=== PATIENT | male | born 1945 | race Caucasian/White ===

== ENCOUNTER → 2023-01-18 13:00 | Outpatient (CLI) | payer MEDICARE, OTHER, SELFPAY | PROVIDERS: Family Provider Family Medicine Geriatric Medicine; PCP Family Medicine; Visit Provider Specialist | DX: N40.1 Benign prostatic hyperplasia with lower urinary tract symptoms (principal); N13.8 Other obstructive and reflux uropathy; R30.0 Dysuria; R33.8 Other retention of urine; R97.20 Elevated prostate specific antigen [PSA] | CPT/HCPCS: 81002; 87086; 99215 ==

== ENCOUNTER → 2024-01-02 10:01 | Outpatient (CLI) | payer MEDICARE, OTHER, SELFPAY | PROVIDERS: Family Provider Family Medicine Geriatric Medicine; PCP Family Medicine; Visit Provider Urology | DX: N40.1 Benign prostatic hyperplasia with lower urinary tract symptoms (principal); N13.8 Other obstructive and reflux uropathy; R97.20 Elevated prostate specific antigen [PSA] | CPT/HCPCS: 87086 ==

== ENCOUNTER → 2024-02-24 09:38 | Outpatient (CLI) | payer MEDICARE, OTHER, SELFPAY ==
[2024-02-24 10:10] LABS: Add Manual Diff / Slide Review NO; Basophils Absolute Auto 100 /uL (0-100); Basophils Percent Auto 1.1 % (0-2); Eosinophils Absolute Auto 200 /uL (0-450); Eosinophils Percent Auto 4.2 % (2-4); Hematocrit 46.1 % (41-53); Hemoglobin 15.3 g/dL (13.5-17.5); Lymphocytes Absolute Auto 1100 /uL (1100-4500); Lymphocytes Percent Auto 22.6 % (25-40); Mean Corpuscular HGB Conc 33.3 % (30-36); Mean Corpuscular Hemoglobin 34.2 PG (26-34); Mean Corpuscular Volume 102.6 fL (80-100); Monocytes Absolute Auto 400 /uL (0-900); Monocytes Percent Auto 8.2 % (3-14); Neutrophils Absolute Auto 3100 /uL (1500-7000); Neutrophils Percent Auto 63.9 % (50-75); Platelet Count 205 X10^3/uL (150-400); Red Blood Cell Count 4.49 X10^6/uL (4.5-5.9); White Blood Cell Count 4.8 X10^3/uL (4.5-11.0)
[2024-02-24 10:24] LABS: Alanine Aminotransferase 32 IU/L (<50); Albumin 4.1 g/dL (3.5-5.0); Albumin Globulin Ratio 1.6 (1.0-2.8); Alkaline Phosphatase 79 U/L (38-126); Aspartate Aminotransferase 37 IU/L (17-59); BUN Creatinine Ratio 25.7 (6-22); Bilirubin Total 0.7 mg/dL (0.2-1.3); Blood Urea Nitrogen 19 mg/dL (9-20); Calcium 9.5 mg/dL (8.4-10.2); Carbon Dioxide 26 mmol/L (22-32); Chloride 106 mmol/L (98-107); Cholesterol 160 mg/dL (140-199); Estimated Glomerular Filt Rate > 60 mL/min (>60); Globulin 2.6 g/dL (1.7-4.1); Glucose 106 mg/dL (80-110); HDL Cholesterol 65 mg/dL (40-60); HEMOLYSIS < 15 (0-50); LDL Cholesterol Calculated 85 mg/dL (<100); Potassium 4.4 mmol/L (3.4-5.1); Sodium 138 mmol/L (137-145); Total Protein 6.7 g/dL (6.3-8.2); Triglycerides 51 mg/dL (35-150)
[2024-02-24 10:53] LABS: Prostate Specific Antigen 4.43 ng/mL (0.10-4.00)
== END ==
LOC: LAB 09:40
PROVIDERS: Family Provider Family Medicine Geriatric Medicine; PCP Family Medicine; Referring Provider Family Medicine; Visit Provider Family Medicine
DX: E78.5 Hyperlipidemia, unspecified (principal); R97.20 Elevated prostate specific antigen [PSA]; N40.1 Benign prostatic hyperplasia with lower urinary tract symptoms
CPT/HCPCS: 36415; 80053; 80061; 84153; 85025

== ENCOUNTER → 2024-12-03 10:38 | Outpatient (CLI) | payer MEDICARE, OTHER, SELFPAY ==
[2024-12-03 13:16] LABS: Prostate Specific Antigen 6.22 ng/mL (0.10-4.00)
== END ==
PROVIDERS: Family Provider Family Medicine Geriatric Medicine; PCP Family Medicine; Referring Provider Urology; Visit Provider Urology
DX: R97.20 Elevated prostate specific antigen [PSA] (principal)
CPT/HCPCS: 36415; 84153

== ENCOUNTER 2024-12-03 14:48 | Observation (INO) | payer MEDICARE, OTHER, SELFPAY ==
[2024-12-03 14:56] VITALS: BP 133/90; PULSE 115; RESP 20; TEMP 36.3; O2SAT 96; BMI 27.1
--- NOTE | 2024-12-03 15:03 | EKG_ITS ---
[place] [id number] [place] [address] Test Date: 2024-12-03 Pat Name: Kristofer Valadez Department: [facility] Room: Gender: Male Sharemilker: JESSICA : 1945 Requested By: Order Number: [id number] [place] MD: Alexandre Tyson MD Measurements Intervals [place] Rate: 117 P: 3 W[place]: 176 QRS: 30 QRSD: 98 T: 32 QT: 312 QTc: 435 Interpretive Statements Sinus tachycardia Possible Inferior infarct , age undetermined Electronically Signed On 12-03-2024 16:10:30 PDT by Alexandre Tyson MD
--- NOTE | 2024-12-03 15:15 | ED.GIBLEED ---
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 Has known hemorrhoids in the past. Has not had any colonoscopy recently but negative Cologuard apparently in the past. Patient denies headache, dizziness, lightheadedness, chest pain, back pain, nausea, vomiting, shortness of breath. Other than what is stated 14 point review of system is negative. Related Data Home Medications ?Medication ?Instructions ?Recorded ?Confirmed apixaban 5 mg tablet (Eliquis) 5 mg PO BID 01/18/23 01/02/24 Allergies Allergy/AdvReac Type Severity Reaction Status Date / Time No Known Drug Allergies Allergy Unverified 01/02/24 10:05 Review of Systems Review of Systems ROS Unobtainable: All systems reviewed & are unremarkable except as noted in HPI and below Patient History Medical History History of elevated PSA Nocturia History of urinary retention BPH w urinary obs/LUTS Diverticular disease Surgical History History of bilateral knee replacement History of colon surgery History of cholecystectomy Family History Brother Cancer of neck Mother Breast cancer Social History Smoking Status: Never smoker Smoking Status: Never smoker Exam Narrative Exam Narrative: GENERAL: [79] year old patient appears stated age. Well-developed patient, in mild distress. HEAD: Atraumatic. Normocephalic. EYES: Pupils equal round and reactive. Extraocular motions intact. No scleral icterus. No injection or drainage. CARDIOVASCULAR: Regular rate and rhythm without murmurs, gallops, or rubs. RESPIRATORY: Clear to auscultation. Breath sounds equal bilaterally. No wheezes, rales, or rhonchi. GASTROINTESTINAL: Abdomen soft, non-tender, nondistended. Rectal: Hemoccult guaiac positive external hemorrhoid EXTREMITIES: No edema or joint tenderness. BACK: Nontender without deformity or crepitance. No flank tenderness. NEURO: AOx3. SKIN: No rash or erythema of visible areas Initial Vital Signs Initial Vital Signs: Vital Signs Temperature 97.3 F L 12/03/24 14:56 Pulse Rate 115 H 12/03/24 14:56 Respiratory Rate 20 12/03/24 14:56 Blood Pressure 133/90 12/03/24 14:56 Pulse Oximetry 96 12/03/24 14:56 Oxygen Delivery Method Room Air 12/03/24 14:56 Course Orders Ordered: ED Orders 12/03/24 15:03 EKG-12 Lead Stat 12/03/24 15:14 CT abdomen pelvis w con Stat 12/03/24 15:29 Complete Blood Count AUTO DIFF Stat Comprehensive Metabolic Panel Stat PTT Partial Thromboplastin Joey Stat Prothrombin Time INR Stat Type and Screen Stat 12/03/24 15:42 Urine Microscopic Stat Ondansetron HCl (Ondansetron 4 Mg/2 Ml Inj) 4 mg IV NOW PRN PRN Reason: Nausea And Vomiting Ondansetron HCl (Ondansetron 4 Mg Odt) 4 mg PO NOW PRN PRN Reason: Nausea And Vomiting Discontinued Medications Lactated Ringer's (Lactated Ringers) 500 mls @ 1,000 mls/hr IV BOLUS ONE Stop: 12/03/24 15:43 Last Admin: 12/03/24 18:01 Dose: 1,000 mls/hr Documented By: ES Vital Signs Vital signs: Vital Signs - 8 hr 12/03/24 14:56 Temperature 97.3 F L Pulse Rate 115 H Respiratory Rate 20 Blood Pressure 133/90 Pulse Oximetry 96 Oxygen Delivery Method Room Air MDM - GI Bleed Lab Data 12/03/24 15:29 12/03/24 15:29 Labs: Lab Results 12/03/24 Range/Units 15:29 WBC 7.3 (4.5-11.0) X10^3/uL RBC 4.15 L (4.5-5.9) X10^6/uL Hgb 14.2 (13.5-17.5) g/dL Hct 41.6 (41-53) % MCV 100.1 H (80-100) fL MCH 34.1 H (26-34) PG MCHC 34.1 (30-36) % RDW 13.6 (11.6-14.8) % Plt Count 236 (150-400) X10^3/uL Neut % (Auto) 77.9 H (50-75) % Lymph % (Auto) 15.1 L (25-40) % [place] % (Auto) 5.5 (3-14) % Eos % (Auto) 0.4 L (2-4) % Baso % (Auto) 1.1 (0-2) % Neut # (Auto) 5700 (4593-1983) /uL Lymph # (Auto) 1100 (7519-8100) /uL [place] # (Auto) 400 (0-900) /uL Eos # (Auto) 0 (0-450) /uL Baso # (Auto) 100 (0-100) /uL PT 13.1 H (9.4-12.5) SECONDS INR 1.2 (0.9-1.3) APTT 32 (25.1-36.5) SECONDS Sodium 135 L (137-145) mmol/L Potassium 4.0 (3.4-5.1) mmol/L Chloride 106 (98-107) mmol/L Carbon Dioxide 20 L (22-32) mmol/L BUN 15 (9-20) mg/dL Creatinine 0.64 L (0.66-1.25) mg/dL Estimated GFR > 60 (>60) mL/min BUN/Creatinine Ratio 23.4 H (6-22) Glucose 118 H (70-99) mg/dL Calcium 8.8 (8.4-10.2) mg/dL Total Bilirubin 1.1 (0.2-1.3) mg/dL AST 37 (17-59) IU/L ALT 25 (<50) IU/L Alkaline Phosphatase 88 (38-126) U/L Total Protein 7.0 (6.3-8.2) g/dL Albumin 4.1 (3.5-5.0) g/dL Globulin 2.9 (1.7-4.1) g/dL Albumin/Globulin Ratio 1.4 (1.0-2.8) Blood Type O Positive Antibody Screen Negative Urine Dip Bedside Urine Glucose Negative Bedside Urine Bilirubin - Negative Bedside Urine Ketone +/- 5 Urine Specific [place] 1.025 Bedside Urine Occult Blood - Negative Bedside Urine pH 6.0 Bedside Urine Protein - Negative Bedside Urine Urobilinogen - Negative Bedside Urine Nitrite - Negative Bedside Urine Leukocytes + [address] scan - abdomen/pelvis: Radiologist's Impression: [address] [address] [address] Scan Report Signed Patient: Kristofer Valadez MR#: [id number] : 1945 Acct:[id number] Age/Sex: 79 / M Date of Service: 12/03/24 Loc: ED Accession Number: [id number] Procedure: CT abdomen pelvis w con Ordering Provider: Alexandre Swartz D.O. PROCEDURE: CT ABDOMEN PELVIS W CON INDICATIONS: GI BLEED TECHNIQUE: After the administration of intravenous contrast, axial sections acquired from the lung bases to the pubic symphysis. Coronal and sagittal reformats were performed. For radiation dose reduction, the following was used: automated exposure control, adjustment of mA and/or kV according to patient size. COMPARISON: None. FINDINGS: Image quality: Diagnostic. Lower Chest: No significant findings. ABDOMEN / PELVIS: Moderate nonspecific wall thickening of the gastroesophageal junction into the stomach, some more than expected for artifact from partial nondistention. Gastritis or other process which rarely may include lymphoma or neoplasm could be considered. Continued follow-up is needed. Duodenum within normal limits. Nonspecific mild wall thickening of the jejunum likely artifact from partial nondistention. Some nonspecific soft tissue prominence in the midline low abdomen some of which related to suspected prior bowel anastomosis although anterior abdominal hernia repair, scarring or other cause could give this appearance (axial series 2, images 74-86). No abnormally dilated bowel to suggest obstruction. Normal nondilated appendix. For a few scattered diverticula in the descending and sigmoid colon. Nonspecific wall thickening of the mid and distal rectum, anus more than expected for artifact from nondistention and proctitis, hemorrhoids or other anal rectal lesion should be considered. Moderately enlarged prostate gland and seminal vesicles with lobulated bulging of the superior prostate into the inferior base of the urinary bladder. Findings commonly related to prosthetic hypertrophy however prosthetic neoplasm not excluded. Mild wall thickening of the urinary bladder measures up to 9 mm thickness some of which related to artifact from partial nondistention although cystitis, chronic urinary retention, infiltrative bladder wall process or other cause should be considered. Surgical clips status post cholecystectomy. 5 mm right adrenal nodule. Left adrenal normal. Mild calcifications of the aorta. 6 cm right renal inferior pole cyst. No hydronephrosis, no renal, ureteral or bladder calculi. Bilateral inguinal hernias containing fat. Moderate to severe degenerative changes of the lower thoracic, lumbar spine with suspected central stenoses at multiple levels from L2-3 through L4-5. Moderate S-shaped scoliosis, moderate degenerative changes of the hips. Liver: Several small low-attenuation foci commonly cyst too small to characterize less than 1 cm. 1.8 cm cyst left lobe of the liver. Biliary ducts: No biliary dilation. Pancreas: Normal Spleen: Normal Peritoneum: No abnormal intraperitoneal fluid. No free air. IMPRESSION: Abnormal appearance of the stomach and distal rectum/anus as discussed above. Follow-up is needed. Other findings as above. ECG Data Interpretation: Sinus tach HR 117 ND 176 QRS [address]-t wave change No preivous EKG to compare MDM Narrative Medical decision making narrative: All lab work, vital signs, nurse triage note, medication list, previous ER visits, and all imaging studies reviewed. Patient given fluids Protonix type and screen GoLYTELY per Dr. Torres. WBC 7.3 hemoglobin 14.2 platelet 236 INR 1.2 sodium 135 potassium 4.0 chloride 106 CO2 20 BUN 15 creatinine 0.64 glucose 118. Case discussed with Dr. Torres bridging orders, GoLYTELY, and to admit to his service. Differential diagnosis per upper versus lower GI bleed, Eliquis related GI bleed. Discharge Plan Departure Patient Disposition: Admitted as Observation Clinical Impression: GI (gastrointestinal bleed) Qualifiers: GI bleed type/associated pathology: anorectal hemorrhage Qualified Code(s): K62.5 - Hemorrhage of anus and rectum Admit Date/Time: 12/03/24 18:18 Admit Provider: Nitesh Torres
[2024-12-03 15:43] LABS: Add Manual Diff / Slide Review NO; Hematocrit 41.6 % (41-53); Hemoglobin 14.2 g/dL (13.5-17.5); Lymphocytes Absolute Auto 1100 /uL (1100-4500); Mean Corpuscular HGB Conc 34.1 % (30-36); Mean Corpuscular Hemoglobin 34.1 PG (26-34); Mean Corpuscular Volume 100.1 fL (80-100); Platelet Count 236 X10^3/uL (150-400)
[2024-12-03 15:55] LABS: INR 1.2 (0.9-1.3); Prothrombin Time 13.1 SECONDS (9.4-12.5)
[2024-12-03 15:57] LABS: PTT Partial Thromboplastin Tim 32 SECONDS (25.1-36.5)
[2024-12-03 16:03] LABS: Alanine Aminotransferase 25 IU/L (<50); Albumin 4.1 g/dL (3.5-5.0); Albumin Globulin Ratio 1.4 (1.0-2.8); Alkaline Phosphatase 88 U/L (38-126); Blood Urea Nitrogen 15 mg/dL (9-20); Calcium 8.8 mg/dL (8.4-10.2); Carbon Dioxide 20 mmol/L (22-32); Chloride 106 mmol/L (98-107); Estimated Glomerular Filt Rate > 60 mL/min (>60); Globulin 2.9 g/dL (1.7-4.1); Glucose 118 mg/dL (70-99); HEMOLYSIS < 15 (0-50); Potassium 4.0 mmol/L (3.4-5.1); Sodium 135 mmol/L (137-145); Total Protein 7.0 g/dL (6.3-8.2)
[2024-12-03] MEDS: LACTATED RINGERS 500 ML 1000 ML IV (18:01)
[2024-12-03] MEDS: PANTOPRAZOLE 40 MG VIAL IV (18:22)
[2024-12-03] MEDS: PEG3350/SOD SULF,BICARB,CL/KCL 4,000 ML SOLUTION 4000 ML PO (18:36)
[2024-12-03 19:00] VITALS: PULSE 104; RESP 19; O2SAT 97
[2024-12-03 19:01] VITALS: BP 157/75; PULSE 101; RESP 14; O2SAT 97
[2024-12-03 19:18] LABS: Culture Indicated Urine Specimen Cultured
[2024-12-03 19:30] VITALS: BP 142/85; PULSE 104; RESP 39; O2SAT 98
--- NOTE | 2024-12-03 19:38 | PM.HP.IH.1 ---
History of Present Illness History of Present Illness Date Patient Seen: 12/03/24 Time Patient Seen: 19:38 Chief complaint: passing blood Narrative: 79yo M admitting through ED for BRBPR. Guiac positive stool in ED. 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 He took eliquis this morning. He noticed BRBPR that filled the toilet last night. He has a history of bleeding hemorrhoids but this was much more blood than he has seen. Hgb in ED 14. CT demonstrated thickening of the distal esophagus (r/o lymphoma) and thickening of distal rectum. He's had multiple colonoscopies in the past so has been on Cologuard screening which was negative recently. No history of polyps on colonoscopy. H/O perforated diverticulitis, Shanda's, reversal 3 months later. [facility] Medical History History of elevated PSA Nocturia History of urinary retention BPH w urinary obs/LUTS Diverticular disease Surgical History History of bilateral knee replacement History of colon surgery History of cholecystectomy Family History Brother Cancer of neck Mother Breast cancer Social History Smoking Status: Never smoker Meds Home Medications and Allergies Home Medications ?Medication ?Instructions ?Recorded ?Confirmed ?Type apixaban 5 mg tablet (Eliquis) 5 mg PO BID 01/18/23 01/02/24 History Allergies Allergy/AdvReac Type Severity Reaction Status Date / Time No Known Drug Allergies Allergy Unverified 01/02/24 10:05 Exam Vital Signs (past 8 hours): - 12/03/24 14:56 Temperature 97.3 F L Pulse Rate 115 H Respiratory Rate 20 Blood Pressure 133/90 Pulse Oximetry 96 Oxygen Delivery Method Room Air Oxygen Delivery Method Room Air Narrative Exam Narrative: Const General: healthy appearing, comfortable and no acute distress Orientation: alert and oriented x3 HENMT Ears: hearing grossly normal bilaterally Eyes Visual Menjivar: normal visual menjivar by confrontation Conjunctivae: conjunctivae normal Sclera: sclerae normal EOM: EOM intact bilaterally Resp Effort & Inspection: normal respiratory effort and able to speak in complete sentences Cardio Rate: regular rate GI Palpation: soft (NT) Extrem General: no pedal edema and no calf tenderness Objective Labs 12/03/24 15:29 12/03/24 15:29 Labs: Laboratory Results - last 24 hr 12/03/24 12/03/24 15:05 15:29 WBC 7.3 RBC 4.15 L Hgb 14.2 Hct 41.6 MCV 100.1 H MCH 34.1 H MCHC 34.1 RDW 13.6 Plt Count 236 Neut % (Auto) 77.9 H Lymph % (Auto) 15.1 L [place] % (Auto) 5.5 Eos % (Auto) 0.4 L Baso % (Auto) 1.1 Neut # (Auto) 5700 Lymph # (Auto) 1100 [place] # (Auto) 400 Eos # (Auto) 0 Baso # (Auto) 100 PT 13.1 H INR 1.2 APTT 32 Sodium 135 L Potassium 4.0 Chloride 106 Carbon Dioxide 20 L BUN 15 Creatinine 0.64 L Estimated GFR > 60 BUN/Creatinine Ratio 23.4 H Glucose 118 H Calcium 8.8 Total Bilirubin 1.1 AST 37 ALT 25 Alkaline Phosphatase 88 Total Protein 7.0 Albumin 4.1 Globulin 2.9 Albumin/Globulin Ratio 1.4 Urine RBC None seen Urine WBC 1-5/hpf Ur Squamous Epith Cells 0-1 /hpf Urine Bacteria Few (2-10) H Ur Culture Indicated? Specimen cultured Vol Urine Centrifuged 10ml (spun) Blood Type O Positive Antibody Screen Negative Assessment & Plan Assessment and plan (1) GI (gastrointestinal bleed): Qualifiers: GI bleed type/associated pathology: anorectal hemorrhage Qualified Code(s): K62.5 - Hemorrhage of anus and rectum Status: Acute Plan Plan EGD/Colonoscopy, possible biopsy tomorrow. Reverse Eliquis with Joshua romero. The risks, benefits and options regarding the procedure were explained to the patient in detail. Risk discussion included but not limited to: bleeding, perforation, unable to reach cecum, missed lesion. The patient was encouraged to ask questions and they were answered to their satisfaction. The patient understands and is agreeable to proceed. Time-Based Coding :: [TOTAL MINUTES] spent with patient and on the chart (including review of chart, obtaining history, exam, reviewing outside data, placing orders, documenting exam and treatment plan, and counseling patient) on [DATE]. [employer] Document charge(s): Yes Charge Codes Initial inpatient/observation care: [address]10
[2024-12-03 19:50] VITALS: BP 137/77; PULSE 108; RESP 18; O2SAT 97
--- NOTE | 2024-12-03 19:51 | PC.NURSE ---
Pt ambulatory to restroom without difficulty or assistance. Pt states there is still notable blood in toilet from rectum.
[2024-12-03 21:17] VITALS: BP 94/72; PULSE 106; RESP 16; TEMP 36.1
[2024-12-03 21:46] VITALS: BMI 27.1
[2024-12-03] MEDS: PROTHROMBIN CPLX(PCC)4FACT 1,000 UNIT/40 ML VIAL 2000 UNIT IV (22:58)
--- NOTE | 2024-12-04 | PATH_ITS ---
[facility] Accession Number: [id number] No. of containers..02 Tissue . 01 Material submitted: . PART A: stomach - STOMACH, ANTRAL PART B: stomach - FUNDIC POLYP . 01 Clinical history: . A) R/O H.PYLORI . 01 Diagnosis: Part A: STOMACH, ANTRAL: Gastric mucosa with mild chronic inflammation. No Helicobacter organisms identified. No intestinal metaplasia, dysplasia, or malignancy identified. . Part B: FUNDIC POLYP: Gastric xanthoma. No Helicobacter organisms identified on H/E stain. No intestinal metaplasia, dysplasia, or malignancy identified. [facility] 12/18/20241422 Local . 01 Electronically signed: . George Jamison MD, Pathologist NPI- [id number] . 01 Gross description: . A. Received in formalin with two identifiers and antral biopsy are two rojo soft tissue fragments ranging from 0.3 to 0.4 cm in greatest dimension, entirely submitted in A1. . B. Received in formalin with two identifiers and fundic polyp are two rojo soft tissue fragments measuring 0.3 cm in greatest dimension each, submitted entirely in B1. (AER:[id number]) /MRV 12/18/2024 1423 Local . 01 Microscopic: . Part A: ANTRAL: An immunohistochemical stain was performed to evaluate for Helicobacter organisms and is negative. The control stains appropriately. * This test was developed and the performance characteristics were validated by [facility]. It has not been cleared or approved by the Food and Drug Administration. . 01 Pathologist provided ICD-10: K29.50, K31.7 . 01 CPT . 833661, 304404, L75094 Specimen Comment: A courtesy copy of this report has been sent to Pathology Performed at: [address] [facility] [address], [place], [place] [id number] MD George Jamison MD Phone: [phone]
[2024-12-04 08:53] VITALS: BP 113/76; PULSE 119; RESP 14; TEMP 36.6; O2SAT 98
[2024-12-04] MEDS: LACTATED RINGERS 1,000 ML 42 ML IV (15:20)
--- NOTE | 2024-12-04 15:42 | P.OP.EGD&C_ITS ---
Operative Date/Time/Diagnoses Date of procedure: 12/04/24 Time of procedure: 16:13 Pre-op diagnosis: BRBPR Post-op diagnosis: other (Large internal hemorrhoids, likely source of bleeding, no active bleeding, fundic polyp, mild antritis) Procedure & Clinicians Study performed: EGD with biopsy, polypectomy, Colonoscopy Same procedure(s) as scheduled: Yes Indications: 79yo M, presented to ED with BRBPR, Eliquis (DVT after knee replacement) reversed. CT with thickening of distal esophagus and rectum. Surgeon: Nitesh Torres Anesthesia Type: MAC +/- Procedure Notes SCOAP/Timeout: Performed Procedure in detail: EGD Informed consent was obtained. The procedure, its risks, benefits, and alternatives were discussed. Patient understood and agreed to proceed. The patient was placed in the left lateral decubitus position with head elevated. Sedation given per anesthesia. The video endoscope was inserted into the oropharynx and guided under direct vision into the esophagus, stomach, and duodenum which were carefully examined. The scope was retroflexed to examine the hiatus and gastroesophageal junction. Antral biopsies were obtained for Helicobacter pylori. The patient tolerated the procedure very well. There were no apparent complications. Significant EGD findings: Z-line noted at: 37cm Normal esophagus including distal esophagus; no esophagitis, mass, ulcer or stricture Mild antritis, biopsies taken to r/o H pylori Fundic polyp, sessile, 3mm, benign appearing, removed with cold biopsy forceps Gastric body without ulcer or bleeding No source of bleeding on EGD Colonoscopy Patient placed in left lateral recumbent position. Time out was performed. Pr ocedural sedation was administered by anesthesia. Examination began with a thorough inspection of the perianal area. There was no evidence of fissures, fistulae, external hemorrhoids or cutaneous malignancy. The colonoscope was then placed into the rectum and the lumen was insufflated with carbon dioxide. The scope was carefully advanced forward. Ultimately the cecum was intubated and confirmed by identification of the ileocecal valve, the appendiceal orifice and the confluence of the taenia. The scope was then slowly withdrawn examining the colon thoroughly in all directions. In the rectum, retroflexion of the scope was performed for inspection of the distal rectum and anal canal. ?Significant colonoscopy findings: ?1. Quality of the preparation-good, [place] 2-3, improved with irrigation/suction, small lesions could be missed ?2. Colon anastomosis seen in sigmoid region, bifurcated anastomosis with blind end 3. Diverticulae scattered throughout colon 4. Large internal hemorrhoids, likely source of bleeding, no active bleeding, would be good candidates for banding 5. No polyps, masses, strictures Scope withdrawal time: 6 Findings: diverticulosis and gastritis Specimen(s): other (gastric polyp, antritis) Complications: none Impression: Internal hemorrhoids, large, likely source of rectal bleeding Fundic polyp, mild gastritis No abnormality in distal esophagus in area of CT thickening Distal rectum with large internal hemorrhoids, otherwise normal on endoscopic appearance Post-procedure Recommendations: Colonscopy in 10 years and Will call with biopsy results Plan for aftercare: PACU then fonseca then home today Follow up: as needed Disposition: PACU
[2024-12-04 16:13] VITALS: BP 132/63; PULSE 87; RESP 16; TEMP 36.1; O2SAT 98
--- NOTE | 2024-12-04 16:30 | PM.DS.IH.1 ---
History of Present Illness History of Present Illness Date Patient Seen: 12/04/24 Time Patient Seen: 16:30 Chief complaint: passing blood Narrative: 79yo M admitting through ED for BRBPR. Guiac positive stool in ED. 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 He took eliquis this morning. He noticed BRBPR that filled the toilet last night. He has a history of bleeding hemorrhoids but this was much more blood than he has seen. Hgb in ED 14. CT demonstrated thickening of the distal esophagus (r/o lymphoma) and thickening of distal rectum. He's had multiple colonoscopies in the past so has been on Cologuard screening which was negative recently. No history of polyps on colonoscopy. H/O perforated diverticulitis, Shanda's, reversal 3 months later. Discharge Providers Provider Date of admission: 12/03/24 18:18 Discharge Date: 12/04/24 Primary care physician: Nuno Wallace MD Consults: 12/03/24 18:16 Consult to General Surgery Urgent Comment: Consulting Provider: Nitesh Torres Reason for consultation: GI bleed Has provider been notified: Yes Discharge provider: Nietsh Torres MD Summary Hospital Course Discharge Diagnosis: LGI bleeding due to internal hemorrhoids/Eliquis Hospital Course: Patient admitted through ED last night with BRBPR. Eliquis reversed with Kcentra and GI endoscopy (EGD/Colon) done today. Dominant finding large internal hemorrhoids. No active bleeding. Patient discharged home. Hold Eliquis until Monday. Discuss ongoing anticoagulation with PCP given significant bleeding event. F/U in office to discuss internal hemorrhoid banding. Status at Discharge Cognitive/behavioral status at discharge: oriented Functional status at discharge: independent ambulation Overall status at discharge: patient is back to baseline Time Spent with Patient Time spent: Greater than 30 minutes Exam Vital Signs (past 8 hours): - 12/04/24 08:53 12/04/24 16:13 Temperature 97.8 F 97.0 F L Pulse Rate 119 H 87 Respiratory Rate 14 16 Blood Pressure 113/76 132/63 Pulse Oximetry 98 98 Oxygen Delivery Method Room Air Oxygen Delivery Method Room Air Narrative Exam Narrative: Const General: healthy appearing, comfortable and no acute distress Orientation: alert and oriented x3 HENMT Ears: hearing grossly normal bilaterally Eyes Visual Menjivar: normal visual menjivar by confrontation Conjunctivae: conjunctivae normal Sclera: sclerae normal EOM: EOM intact bilaterally Resp Effort & Inspection: normal respiratory effort and able to speak in complete sentences Cardio Rate: regular rate GI Palpation: soft (NT) Extrem General: no pedal edema and no calf tenderness Objective Labs 12/03/24 15:29 12/03/24 15:29 Labs: Laboratory Results - last 24 hr 12/03/24 12/03/24 15:05 15:29 Urine RBC None seen Urine WBC 1-5/hpf Ur Squamous Epith Cells 0-1 /hpf Urine Bacteria Few (2-10) H Ur Culture Indicated? Specimen cultured Vol Urine Centrifuged 10ml (spun) Blood Type O Positive Antibody Screen Negative PFSH Medical History History of elevated PSA Nocturia History of urinary retention BPH w urinary obs/LUTS Diverticular disease Surgical History History of bilateral knee replacement History of colon surgery History of cholecystectomy Family History Brother Cancer of neck Mother Breast cancer Social History household members: spouse Smoking Status: Never smoker alcohol intake: current Discharge Assessment & Plan Assessment and Plan Assessment: LGI bleeding due to internal hemorrhoids/Eliquis Plan of Treatment: Home today Resume Eliquis on Monday F/U PCP to discuss anticoagulation after significant bleed F/U my office to discuss banding of internal hemorrhoids Discharge Plan Discharge Plan Patient Disposition: Home Provider Discharge Comment: You have large internal hemorrhoids. These are the most likely cause of your bleeding. We can band these in the office. You can make an appointment (by phone if you wish) to discuss internal hemorrhoid banding. Continue to hold eliquis until Monday. Talk to your PCP about ongoing anticoagulation in face of significant bleed. Regular diet. No activity restrictions. Discharge orders & Medications Prescriptions: Discontinued Eliquis 5 mg tablet 5 mg PO BID Follow up/Referrals: Nuno Wallace MD [Primary Care Provider, Family Practice] Nitesh Torres MD [Physician, General Surgery] Diet/Activity/Treatments Diet: Diet as Tolerated Skin/Wound/Dressing Care Report to your healthcare provider any signs of infection, such as:: chills, fever, night sweats and increased pain Visit Report/Discharge Packet Instructions: DI for Hemorrhoids, DI for Gastritis, DI for Diverticulosis, DI for Stomach Polyps Stand Alone Forms: Patient Portal/API, Stroke Signs & Symptoms Discharge Data Primary Care Provider: Nuno Wallace Attending Provider: Nitesh Torres Admit Date/Time: 12/03/24 18:18 PROFEE Charge Codes Discharge inpatient/observation: [id number]
[2024-12-04 17:01] VITALS: BP 115/65; PULSE 84; RESP 15; TEMP 36.3; O2SAT 99
--- NOTE | 2024-12-04 17:12 | PC.NURSE ---
Patient d/c from PACU. Call from PACU nurse with d/c time of 1708.
== END 2024-12-04 17:08 | disposition home or self-care (01) ==
LOC: ED 15:08 → AC 18:19
PROVIDERS: Emergency Medicine; Admitting Provider Surgery; Emergency Provider Family Medicine; Family Provider Family Medicine Geriatric Medicine; PCP Family Medicine; Referring Provider Family Medicine; Visit Provider Surgery
PROC: 0DJ08ZZ Inspection of Upper Intestinal Tract, Via Natural or Artificial Opening Endoscopic (ICD-10-PCS; CPT 43239; principal; 2024-12-04 15:30)
PROC: 0DJD8ZZ Inspection of Lower Intestinal Tract, Via Natural or Artificial Opening Endoscopic (ICD-10-PCS; CPT 45378; 2024-12-04 15:30)
DX: K92.1 Melena (principal); Z87.19 Personal history of other diseases of the digestive system; Z86.718 Personal history of other venous thrombosis and embolism; Z79.01 Long term (current) use of anticoagulants; K64.8 Other hemorrhoids; K29.50 Unspecified chronic gastritis without bleeding; K31.7 Polyp of stomach and duodenum; K57.30 Diverticulosis of large intestine without perforation or abscess without bleeding
CPT/HCPCS: 43239; 45378; 36415; 74177; 80053; 81003; 81015; 82272; 84153; 85025; 85610; 85730; 86850; 86900; 86901; 87086; 93005; 93010; 96361; 96374; 96375; 99284; G0378; J2470; J2704; J7120; J7168; Q9967